=== PATIENT | male | born 1990 | race Hispanic/Latino ===

== ENCOUNTER 2016-12-01 18:28 | Emergency (ER) | payer BC, SELFPAY ==
[2016-12-01 18:28] VITALS: BMI 17.7
[2016-12-01 18:34] VITALS: PULSE 86; TEMP 97.9; O2SAT 98
[2016-12-01] MEDS ORDERED: TDAP Vaccine 0.5 mL Syr IM ONE (18:39)
--- NOTE | 2016-12-01 18:44 | ED PDOC ---
Arrival/HPI - General Chief Complaint: Finger,Hand,&Wrist Time Seen by Provider: 12/01/16 18:38 Historian: Patient - History of Present Illness Narrative History of Present Illness (Text): 12/01/16 18:39 26 y/o male, no pmh, nkda, last tetanus doesn't remember, nkda, c/o rt. hand 5th digit finger laceration x 2 hours by the metal. Pt. was walking, tripped over the curb, grab to the metal fence, sustained the laceration, bleeding resolved, no numbness or tingling, no dizziness, no headache, no fever or chills , no other medical or psychological complaints. Past Medical History - Provider Review Nursing Documentation Reviewed: Yes - Infectious Disease Hx of Infectious Diseases: None - Musculoskeletal/Rheumatological Other/Comment: MS - Psychiatric Hx Depression: No Hx Emotional Abuse: No Hx Physical Abuse: No Hx Substance Use: Yes (CANNABIS) - Suicidal Assessment Feels Threatened In Home Enviroment: No Family/Social History - Physician Review Nursing Documentation Reviewed: Yes Family/Social History: Unknown Family HX Smoking Status: Light Smoker < 10 Cigarettes Daily Hx Alcohol Use: Yes Hx Substance Use: Yes (CANNABIS) Allergies/Home Meds Allergies/Adverse Reactions: Allergies No Known Allergies Allergy (Verified 12/01/16 18:34) Review of Systems - Review of Systems Constitutional: absent: Fatigue, Fevers Respiratory: absent: SOB, Cough Cardiovascular: absent: Chest Pain Gastrointestinal: absent: Abdominal Pain, Nausea, Vomiting Skin: Laceration. absent: Rash, Pruritis, Skin Lesions, Abscess, Ulcer Neurological: absent: Headache, Dizziness, Focal Weakness, Speech Changes Physical Exam Vital Signs Reviewed: Yes Vital Signs Temp Pulse Resp BP Pulse Ox 12/01/16 19:46 16 112/72 12/01/16 18:31 97.9 F 86 18 123/80 98 Temperature: Afebrile Blood Pressure: Normal Pulse: Regular Respiratory Rate: Normal Appearance: Positive for: Well-Appearing, Non-Toxic, Comfortable Pain Distress: Mild Mental Status: Positive for: Alert and Oriented X 3 - Systems Exam Head: Present: Atraumatic, Normocephalic Pupils: Present: PERRL Extroacular Muscles: Present: EOMI Conjunctiva: Present: Normal Mouth: Present: Moist Mucous Membranes Neck: Present: Normal Range of Motion Respiratory/Chest: Present: Clear to Auscultation, Good Air Exchange. No: Respiratory Distress, Accessory Muscle Use Cardiovascular: Present: Regular Rate and Rhythm, Normal S1, S2. No: Murmurs Abdomen: Present: Normal Bowel Sounds. No: Tenderness, Distention, Peritoneal Signs Lower Extremity: Present: Other (Rt. hand 5th digit: ventral aspect middle phalanx noted to have skin tearing approx. 2cm superfical laceration noted with no visible foreign bodies, FROM without limitation, sensation intact, motor5/5, +radial pulse, capillary refill< 2 seconds, neurovascular intact. ) Neurological: Present: GCS=15, CN II-XII Intact, Speech Normal Skin: Present: Warm, Dry, Normal Color. No: Rashes Psychiatric: Present: Alert, Oriented x 3, Normal Insight, Normal Concentration Medical Decision Making ED Course and Treatment: 12/01/16 18:42 -tetanus, keflex, motrin -xray r/o fracture or foreign bodies. 12/01/16 19:01 -xray show no fracture or dislocation -wound irrigate with normal saline, clean with betadine, 1.5cc for digital block , sterile procedure 5-0 nylon made 7 sutures, hemostasis obtained, bacitracin applied, gauze dressing, sensation intact, motor 5/5, finger splint applied, less than 1cc of blood loss, no complication. -Discharge home with keflex, bacitracin oinment, motrin, finger splint, keep the dressing dry and clean for 24-48 hours, clean with soap and water twice daily, avoid strenuous exercise or activity, follow up with your own pmd and hand specialist within 2 days, sutures need to be removed by day 12, return to the ER for any new or worsening signs or symptoms. - RAD Interpretation Radiology Orders: 12/01/16 18:38 HAND LEFT 5TH DIGIT (FINGER) [RAD] Stat normal left hand radiograph [employer] Concentration: Radiologist - Medication Orders Current Medication Orders: Discontinued Medications Acetaminophen (Tylenol 650 Mg Supp) Confirm Administered Dose 650 mg .ROUTE .STK -MED ONE Stop: 12/01/16 23:24 Cephalexin Monohydrate (Keflex) 500 mg PO STAT STA PRN Reason: Protocol Stop: 12/01/16 18:40 Last Admin: 12/01/16 19:08 Dose: 500 MG Ibuprofen (Motrin Tab) 600 mg PO STAT STA Stop: 12/01/16 18:40 Last Admin: 12/01/16 19:08 Dose: 600 MG Lidocaine HCl (Lidocaine 1% (20ml)) 1.5 ml IJ STAT STA Stop: 12/01/16 19:01 Last Admin: 12/01/16 19:07 Dose: 1.5 ML Comments: Given to PA Tetanus/Reduced Diphtheria/Acell Pertussis (Boostrix Vaccine Inj) 0.5 ml IM .ONCE ONE Stop: 12/01/16 18:40 Last Admin: 12/01/16 19:08 Dose: 0.5 ML MAR Immunization Data Document 12/01/16 19:08 [facility] [place] (Rec: 12/01/16 19:08 [id number]) Immunization Data Vaccine Lot Number [id number] Vaccine Expiration Date 11/01/18 - PA / [employer] / Resident Statement / has reviewed & agrees with the documentation as recorded. Disposition/Present on Arrival - Present on Arrival Any Indicators Present on Arrival: No History of DVT/PE: No History of Uncontrolled Diabetes: No Urinary Catheter: No History of Decub. Ulcer: No History Surgical Site Infection Following: None - Disposition Have Diagnosis and Disposition been Completed?: Yes Diagnosis: Finger laceration Disposition: HOME/ ROUTINE Disposition Time: 18:55 Patient Plan: Discharge Condition: IMPROVED Discharge Instructions (ExitCare): Laceration (ED), Care For Your Stitches (ED) Additional Instructions: Discharge home with keflex, bacitracin oinment, motrin, finger splint, keep the dressing dry and clean for 24-48 hours, clean with soap and water twice daily, avoid strenuous exercise or activity, follow up with your own pmd and hand specialist within 2 days, sutures need to be removed by day 12, return to the ER for any new or worsening signs or symptoms. Prescriptions: Bacitracin Ointment [Bacitracin] 1 appful TOP BID #15 g Cephalexin [cephalexin] 500 mg PO QID #28 cap Ibuprofen [Motrin] 600 mg PO QID #24 tab Referrals: Maria Esther Perez MD [Non-Staff] - Follow up with primary [facility] [place] [Outside] - Follow up with primary Forms: WORK NOTE
[2016-12-01] MEDS ORDERED: Lidocaine 1% Inj (20ml) IJ STA (19:00)
[2016-12-01 19:47] VITALS: BP 112/72; RESP 16
--- NOTE | 2016-12-02 07:56 | RAD ---
PROCEDURE: Left Hand Radiographs. HISTORY: lt. hand 5th ventral laceration by metal COMPARISON: None. FINDINGS: BONES: Normal. No fracture. JOINTS: Normal. No osteoarthritic changes. SOFT TISSUES: Normal. OTHER FINDINGS: None. IMPRESSION: Normal left hand radiographs.
== END 2016-12-01 19:47 | disposition home or self-care (01) ==
LOC: ED 18:28
DX: S61.217A Laceration without foreign body of left little finger without damage to nail, initial encounter (principal); W01.118A Fall on same level from slipping, tripping and stumbling with subsequent striking against other sharp object, initial encounter; Y93.01 Activity, walking, marching and hiking; Y92.480 Sidewalk as the place of occurrence of the external cause; Z23 Encounter for immunization

== ENCOUNTER 2016-12-19 10:05 | Emergency (ER) | payer BC ==
[2016-12-19 10:05] VITALS: BMI 17.7
[2016-12-19 10:22] VITALS: BP 100/66; PULSE 87; RESP 16; TEMP 98.3; O2SAT 97
--- NOTE | 2016-12-19 10:42 | ED PDOC ---
Arrival/HPI - General Chief Complaint: Suture/Staple Removal Time Seen by Provider: 12/19/16 10:11 Historian: Patient - History of Present Illness Narrative History of Present Illness (Text): 12/19/16 10:38 26yo male who present to ED for suture removal from his left 5th finger. Sutures was placed here on 12/01/16. states he never followed up with anyone. Denies discharge, redness, any other complaint. Past Medical History - Provider Review Nursing Documentation Reviewed: Yes - Infectious Disease Hx of Infectious Diseases: None - Cardiac Hx Cardiac Disorders: No - Pulmonary Hx Respiratory Disorders: No - Neurological Hx Neurological Disorder: No - HEENT Hx HEENT Disorder: No - Renal Hx Renal Disorder: No - Endocrine/Metabolic Hx Endocrine Disorders: No - Hematological/Oncological Hx Blood Disorders: No - Integumentary Hx Dermatological Disorder: No - Musculoskeletal/Rheumatological Other/Comment: MD - Gastrointestinal Hx Gastrointestinal Disorders: No - Genitourinary/Gynecological Hx Genitourinary Disorders: No - Psychiatric Hx Psychophysiologic Disorder: No Hx Depression: No Hx Emotional Abuse: No Hx Physical Abuse: No Hx Substance Use: Yes (CANNABIS) - Surgical History Other/Comment: MUSCLE BX - Suicidal Assessment Feels Threatened In Home Enviroment: No Family/Social History - Physician Review Nursing Documentation Reviewed: Yes Family/Social History: Unknown Family HX Smoking Status: Light Smoker < 10 Cigarettes Daily Hx Alcohol Use: Yes Hx Substance Use: Yes (CANNABIS) Allergies/Home Meds Allergies/Adverse Reactions: Allergies No Known Allergies Allergy (Verified 12/19/16 10:16) Review of Systems - Physician Review All systems were reviewed & negative as marked: Yes - Review of Systems Constitutional: Normal Eyes: Normal ENT: Normal Respiratory: Normal Cardiovascular: Normal Gastrointestinal: Normal Genitourinary Male: Normal Musculoskeletal: Normal Skin: Other (Suture removal) Neurological: Normal Endocrine: Normal Hemo/Lymphatic: Normal Psychiatric: Normal Physical Exam Vital Signs Reviewed: Yes Vital Signs Temp Pulse Resp BP Pulse Ox 12/19/16 10:20 98.3 F 87 16 100/66 97 Temperature: Afebrile Blood Pressure: Normal Pulse: Regular Respiratory Rate: Normal Appearance: Positive for: Well-Appearing, Non-Toxic, Comfortable Pain Distress: None Mental Status: Positive for: Alert and Oriented X 3 - Systems Exam Head: Present: Atraumatic, Normocephalic Pupils: Present: PERRL Extroacular Muscles: Present: EOMI Conjunctiva: Present: Normal Mouth: Present: Moist Mucous Membranes Neck: Present: Normal Range of Motion Respiratory/Chest: Present: Clear to Auscultation, Good Air Exchange. No: Respiratory Distress, Accessory Muscle Use Cardiovascular: Present: Regular Rate and Rhythm, Normal S1, S2. No: Murmurs Abdomen: Present: Normal Bowel Sounds. No: Tenderness, Distention, Peritoneal Signs Back: Present: Normal Inspection Upper Extremity: Present: Normal Inspection. No: Cyanosis, Edema Lower Extremity: Present: Normal Inspection. No: Edema Neurological: Present: GCS=15, CN II-XII Intact, Speech Normal Skin: Present: Warm, Dry, Normal Color, Other (6sutures noted in place on left ortiz 5th finger. No erythema. No discharge. No sign of infection). No: Rashes Psychiatric: Present: Alert, Oriented x 3, Normal Insight, Normal Concentration Medical Decision Making ED Course and Treatment: 12/19/16 10:41 Suture area cleaned with betadine. 7sutures removed. Skin edge appear approximated. Bacitracine applied. Referred to his PMD. Disposition/Present on Arrival - Present on Arrival Any Indicators Present on Arrival: No History of DVT/PE: No History of Uncontrolled Diabetes: No Urinary Catheter: No History of Decub. Ulcer: No History Surgical Site Infection Following: None - Disposition Have Diagnosis and Disposition been Completed?: Yes Diagnosis: Visit for suture removal Disposition: HOME/ ROUTINE Disposition Time: 10:40 Patient Plan: Discharge Condition: STABLE Discharge Instructions (ExitCare): Stitches Removal (ED) Additional Instructions: Follow up with your doctor Keep wound clean and dry Follow up with your doctor Return to ED for any new or worsening symptoms Referrals: Mathew Charlton, [Primary Care Provider] - Follow up with primary
== END 2016-12-19 10:49 | disposition home or self-care (01) ==
LOC: ED 10:05
DX: Z48.02 Encounter for removal of sutures (principal)

== ENCOUNTER 2017-08-30 00:50 | Emergency (ER) | payer BC ==
[2017-08-30 00:51] VITALS: BMI 17.7
[2017-08-30 01:00] VITALS: TEMP 97.8
[2017-08-30] MEDS ORDERED: Oxycodone/Acetaminophen 5/325 mg Tab PO STA (01:00)
--- NOTE | 2017-08-30 01:05 | ED PDOC ---
Arrival/HPI - General Chief Complaint: Dental Pain Time Seen by Provider: 08/30/17 01:00 Historian: Patient - History of Present Illness Narrative History of Present Illness (Text): 08/30/17 01:01 27yo male with history of muscular dystrophy who present with complaint of left sided lower toothache. States he already have appointment with a Dental surgeon tomorrow. States he has been taking Ibuprofen 600mg without relieve. He denies trauma, any other complaint. Past Medical History - Provider Review Nursing Documentation Reviewed: Yes - Infectious Disease Hx of Infectious Diseases: None - Cardiac Hx Cardiac Disorders: No - Pulmonary Hx Respiratory Disorders: No - Neurological Hx Neurological Disorder: No - HEENT Hx HEENT Disorder: No - Renal Hx Renal Disorder: No - Endocrine/Metabolic Hx Endocrine Disorders: No - Hematological/Oncological Hx Blood Disorders: No - Integumentary Hx Dermatological Disorder: No - Musculoskeletal/Rheumatological Other/Comment: MD - Gastrointestinal Hx Gastrointestinal Disorders: No - Genitourinary/Gynecological Hx Genitourinary Disorders: No - Psychiatric Hx Psychophysiologic Disorder: No Hx Depression: No Hx Emotional Abuse: No Hx Physical Abuse: No Hx Substance Use: Yes (CANNABIS) - Surgical History Other/Comment: MUSCLE BX - Suicidal Assessment Feels Threatened In Home Enviroment: No Family/Social History - Physician Review Nursing Documentation Reviewed: Yes Family/Social History: Unknown Family HX Smoking Status: Heavy Smoker > 10 Cigarettes Daily Hx Alcohol Use: Yes Frequency of alcohol use: Socially Hx Substance Use: Yes (CANNABIS) Allergies/Home Meds Allergies/Adverse Reactions: Allergies No Known Allergies Allergy (Verified 08/30/17 01:00) Review of Systems - Physician Review All systems were reviewed & negative as marked: Yes - Review of Systems Constitutional: Normal Eyes: Normal ENT: Other (Dental pain) Respiratory: Normal Cardiovascular: Normal Gastrointestinal: Normal Genitourinary Male: Normal Musculoskeletal: Normal Skin: Normal Neurological: Normal Endocrine: Normal Hemo/Lymphatic: Normal Psychiatric: Normal Physical Exam Vital Signs Reviewed: Yes Vital Signs Temp Pulse Resp BP Pulse Ox 08/30/17 00:54 97.8 F 74 18 124/75 99 Temperature: Afebrile Blood Pressure: Normal Pulse: Regular Respiratory Rate: Normal Appearance: Positive for: Well-Appearing, Non-Toxic, Comfortable Pain Distress: None Mental Status: Positive for: Alert and Oriented X 3 - Systems Exam Head: Present: Atraumatic, Normocephalic Pupils: Present: PERRL Extroacular Muscles: Present: EOMI Conjunctiva: Present: Normal Mouth: Present: Moist Mucous Membranes. No: Normal Teeth (Partial Left sided lower 2nd molar noted. No gingival swelling) Neck: Present: Normal Range of Motion Respiratory/Chest: Present: Clear to Auscultation, Good Air Exchange. No: Respiratory Distress, Accessory Muscle Use Cardiovascular: Present: Regular Rate and Rhythm, Normal S1, S2. No: Murmurs Abdomen: Present: Normal Bowel Sounds. No: Tenderness, Distention, Peritoneal Signs Back: Present: Normal Inspection Upper Extremity: Present: Normal Inspection. No: Cyanosis, Edema Lower Extremity: Present: Normal Inspection. No: Edema Neurological: Present: GCS=15, CN II-XII Intact, Speech Normal Skin: Present: Warm, Dry, Normal Color. No: Rashes Psychiatric: Present: Alert, Oriented x 3, Normal Insight, Normal Concentration Disposition/Present on Arrival - Present on Arrival Any Indicators Present on Arrival: No History of DVT/PE: No History of Uncontrolled Diabetes: No Urinary Catheter: No History of Decub. Ulcer: No History Surgical Site Infection Following: None - Disposition Have Diagnosis and Disposition been Completed?: Yes Diagnosis: Dental caries Disposition: HOME/ ROUTINE Disposition Time: 01:10 Patient Plan: Discharge Condition: STABLE Discharge Instructions (ExitCare): Dental Caries (ED) Additional Instructions: Follow up with your Dental surgeon Return to ED for any new or worsening symptoms Prescriptions: traMADol [Ultram] 50 mg PO Q6 #6 tab Referrals: [facility] [place] [Outside] - Follow up with primary
[2017-08-30 01:22] VITALS: BP 130/70; PULSE 70; RESP 16; O2SAT 100
== END 2017-08-30 01:27 | disposition home or self-care (01) ==
LOC: ED 00:50
DX: K02.9 Dental caries, unspecified (principal)

== ENCOUNTER 2017-11-17 13:22 | Emergency (ER) | payer BC ==
--- NOTE | 2017-11-17 14:16 | ED PDOC ---
Arrival/HPI - General Time Seen by Provider: 11/17/17 14:00 Historian: Patient - History of Present Illness Narrative History of Present Illness (Text): 11/17/17 14:12 27 year old male, whose past medical history includes muscular dystrophy, presents to the emergency department complaining of right knee pain s/p fall last night. Patient was carrying bags and tripped, twisting is right knee. Patient notes he propped up the leg and put on a knee brace. Patient also notes pain to the right knee when bearing weight. Patient denies any fever, chills, back pain, neck pain, headache, dizziness, or any other complaints. Time/Duration: Other (last night) Symptom Onset: Sudden Symptom Course: Unchanged Activities at Onset: Light Context: Walking Past Medical History - Provider Review Nursing Documentation Reviewed: Yes - Infectious Disease Hx of Infectious Diseases: None - Cardiac Hx Cardiac Disorders: No - Pulmonary Hx Respiratory Disorders: No - Neurological Hx Neurological Disorder: No - HEENT Hx HEENT Disorder: No - Renal Hx Renal Disorder: No - Endocrine/Metabolic Hx Endocrine Disorders: No - Hematological/Oncological Hx Blood Disorders: No - Integumentary Hx Dermatological Disorder: No - Musculoskeletal/Rheumatological Other/Comment: MD - Gastrointestinal Hx Gastrointestinal Disorders: No - Genitourinary/Gynecological Hx Genitourinary Disorders: No - Psychiatric Hx Psychophysiologic Disorder: No Hx Depression: No Hx Emotional Abuse: No Hx Physical Abuse: No Hx Substance Use: Yes (CANNABIS) - Surgical History Other/Comment: MUSCLE BX - Suicidal Assessment Feels Threatened In Home Enviroment: No Family/Social History - Physician Review Nursing Documentation Reviewed: Yes Family/Social History: Unknown Family HX Smoking Status: Heavy Smoker > 10 Cigarettes Daily Hx Alcohol Use: Yes Hx Substance Use: Yes (CANNABIS) Allergies/Home Meds Allergies/Adverse Reactions: Allergies No Known Allergies Allergy (Verified 11/17/17 14:15) Home Medications: Home Meds Medication Instructions Recorded Confirmed No Known Home Med 11/17/17 11/17/17 Review of Systems - Review of Systems Constitutional: absent: Fevers Respiratory: absent: SOB Cardiovascular: absent: Chest Pain Gastrointestinal: absent: Abdominal Pain Musculoskeletal: Other (right knee pain, denies hip or ankle pain). absent: Back Pain, Neck Pain Skin: absent: Rash, Skin Lesions, Laceration Neurological: Gait Changes. absent: Headache, Dizziness, Focal Weakness Hemo/Lymphatic: absent: Easy Bleeding Physical Exam - Physical Exam Narrative Physical Exam (Text): 11/17/17 14:20 Head: Atraumatic. Normocephalic. Eyes: Conjunctiva not injected. ENT: Mucous membranes are moist and intact. Neck: Supple. Nontender. Cardiovascular: Regular rate. Regular rhythm. Distal pulses intact in lower extremity Pulmonary/Chest: No evidence of respiratory distress. Back: No CVA tenderness. Extremities: There is mild swelling noted to right knee with pain over lateral patella and lateral knee. Mild ligamentous laxity noted with NEGATIVE anterior drawer's sign. No erythema or warmth. Full flexion and extension at knee. No hip or ankle pain with direct palpation or range of motion. No left sided leg pain. No achilles or calf pain. Skin: Skin is warm and dry. No erythema. No lacerations or abrasions. Neurological: Alert, awake, and oriented. Motor and sensory exam intact in all extremities, at baseline. Psychiatric: Good eye contact. Normal interaction, affect, and behavior. 11/17/17 14:31 Vital Signs Reviewed: Yes Vital Signs Temp Pulse Resp BP Pulse Ox 11/17/17 15:40 77 18 115/71 99 11/17/17 14:16 98.1 F 84 17 110/54 L 99 Temperature: Afebrile Appearance: Positive for: Uncomfortable Pain Distress: Moderate Medical Decision Making ED Course and Treatment: 11/17/17 14:17 Impression: 27 year old male who presents to the emergency department complaining of right knee pain s/p fall. Differential Diagnosis included but are not limited to: Knee Sprain vs. Knee Ligament Tear vs. Knee Fx Plan: -- Xray Rt knee -- Mobilizer -- Orthopedic referral -- Reassess and disposition Progress Notes: Patient with prior history of muscular dystrophy. On exam he has pain and mild swelling to right knee. No hip pain or ankle pain. Patient is NV intact. He has been bearing weight with pain. He placed brace on his knee prior to arrival. Suspect right knee ligamentous injury. He has strong distal pulses and is neurologically intact. Xrays negative for acute fracture. Limitations of plan films in diagnosing ligamentous disease reviewed with patient. He was placed in knee immobilizer, I advised crutches and non weight bearing until cleared by orthopedic physician. He has been given work note and orthopedic referrals. Treatment plan reviewed with patient. He is NV intact on re-evaluation. No fever. No hip pain. No ankle pain. - RAD Interpretation Radiology Orders: 11/17/17 14:16 KNEE W PATELLA RIGHT 3 VIEW [RAD] Stat - Scribe Statement The provider has reviewed the documentation as recorded by the Scribe Katerin Hunteraditi All medical record entries made by the Scribe were at my direction and personally dictated by me. I have reviewed the chart and agree that the record accurately reflects my personal performance of the history, physical exam, medical decision making, and the department course for this patient. I have also personally directed, reviewed, and agree with the discharge instructions and disposition. Disposition/Present on Arrival - Present on Arrival Any Indicators Present on Arrival: No History of DVT/PE: No History of Uncontrolled Diabetes: No Urinary Catheter: No History Surgical Site Infection Following: None - Disposition Have Diagnosis and Disposition been Completed?: Yes Diagnosis: Knee sprain Disposition: HOME/ ROUTINE Disposition Time: 15:30 Patient Plan: Discharge Condition: GOOD Discharge Instructions (ExitCare): How to Use Crutches, Knee Immobilizer (DC), Knee Sprain (DC) Additional Instructions: You have a right knee injury, possible ligament injury. Wear immobilizer and use crutches. Please follow-up with orthopedic physician for reassessment of injury. No strenuous activity until cleared by orthopedic physician. If you had an X-Ray or CT scan: A Radiologist will review the ED reading if any change in treatment is needed we will contact you. Referrals: [facility] [Outside] - Follow up with primary [facility] [place] [Outside] - Follow up with primary Brandon Nicolas MD [Staff Provider] - Follow up with primary Forms: [employer] (Belarusian), WORK NOTE
[2017-11-17 14:17] VITALS: TEMP 98.1; O2SAT 99; BMI 21.6
--- NOTE | 2017-11-17 15:29 | RAD ---
PROCEDURE: Right Knee Radiographs. HISTORY: right knee injury COMPARISON: None. FINDINGS: BONES: Normal. No fracture. JOINTS: Normal. No osteoarthritis. JOINT EFFUSION: None. OTHER FINDINGS: None. IMPRESSION: Normal radiographs of the right knee.
[2017-11-17 16:32] VITALS: BP 115/71; PULSE 77; RESP 18
== END 2017-11-17 15:40 | disposition home or self-care (01) ==
LOC: ED 13:22
DX: S83.91XA Sprain of unspecified site of right knee, initial encounter (principal); W01.0XXA Fall on same level from slipping, tripping and stumbling without subsequent striking against object, initial encounter; Y92.9 Unspecified place or not applicable

== ENCOUNTER 2018-04-24 09:11 | Emergency (ER) | payer SELFPAY ==
[2018-04-24 09:11] VITALS: BMI 21.6
[2018-04-24 09:37] VITALS: RESP 18; TEMP 98.1
--- NOTE | 2018-04-24 10:11 | ED PDOC ---
Arrival/HPI - General Historian: Patient - History of Present Illness Time/Duration: 24 hours Symptom Onset: Sudden Symptom Course: Unchanged Quality: Stabbing Severity Level: 9 - General Time Seen by Provider: 04/24/18 09:35 - History of Present Illness Narrative History of Present Illness (Text): Patient is a 27 year old male with past medical history of Limb-girdle muscular dystrophy presenting to the ED with right hip pain after a fall. Patient states that he fell 10 steps while climbing up the stairs last night. He states that he fell on his right hip and hit his head but denies any loss of consciousness or headaches. Patient describes the pain in the right hip as sharp, 9/10, and non-radiating. Walking makes the pain worse and staying still makes the pain better. Patient further denies fevers, chills, nausea, vomiting, shortness of breath, chest pain, abdominal pain, or urinary symptoms. (Kendall Phoenix) Past Medical History - Provider Review Nursing Documentation Reviewed: Yes - Travel History Have you recently traveled outside [place] w/in the past 3 mons?: Yes - Infectious Disease Hx of Infectious Diseases: None - Cardiac Hx Cardiac Disorders: No - Pulmonary Hx Respiratory Disorders: No - Neurological Hx Neurological Disorder: No Other/Comment: muscular atrophy - HEENT Hx HEENT Disorder: No - Renal Hx Renal Disorder: No - Endocrine/Metabolic Hx Endocrine Disorders: No - Hematological/Oncological Hx Blood Disorders: No - Integumentary Hx Dermatological Disorder: No - Musculoskeletal/Rheumatological Other/Comment: MD - Gastrointestinal Hx Gastrointestinal Disorders: No - Genitourinary/Gynecological Hx Genitourinary Disorders: No - Psychiatric Hx Psychophysiologic Disorder: No Hx Depression: No Hx Emotional Abuse: No Hx Physical Abuse: No Hx Substance Use: Yes (CANNABIS) - Surgical History Other/Comment: MUSCLE BX - Anesthesia Hx Anesthesia: Yes Hx Anesthesia Reactions: No - Suicidal Assessment Feels Threatened In Home Enviroment: No - Patient History Narrative Patient History: Limb-girdle muscular dystrophy (Kendall Phoenix) Family/Social History - Physician Review Nursing Documentation Reviewed: Yes Family/Social History: Hypertension Smoking Status: Heavy Smoker > 10 Cigarettes Daily Hx Alcohol Use: Yes Frequency of alcohol use: Socially Hx Substance Use: Yes (CANNABIS) Allergies/Home Meds Allergies/Adverse Reactions: Allergies No Known Allergies Allergy (Verified 11/17/17 14:15) Home Medications: Home Meds Medication Instructions Recorded Confirmed No Known Home Med 11/17/17 11/17/17 Review of Systems - Physician Review All systems were reviewed & negative as marked: Yes - Review of Systems Constitutional: Normal. absent: Fevers, Night Sweats Eyes: Normal. absent: Vision Changes ENT: Normal Respiratory: Normal. absent: SOB, Cough, Sputum, Wheezing Cardiovascular: Normal. absent: Chest Pain Gastrointestinal: Normal. absent: Abdominal Pain, Constipation, Diarrhea, Nausea, Vomiting Genitourinary Male: Normal. absent: Dysuria, Frequency, Hematuria Musculoskeletal: Other (Right hip pain). absent: Back Pain, Neck Pain Skin: Normal. absent: Rash, Pruritis, Skin Lesions, Laceration Neurological: Normal. absent: Headache, Dizziness, Focal Weakness Psychiatric: Normal. absent: Anxiety, Depression Physical Exam Vital Signs Reviewed: Yes Temperature: Afebrile Blood Pressure: Hypertensive Pulse: Regular Respiratory Rate: Normal Appearance: Positive for: Well-Appearing, Non-Toxic, Comfortable Pain Distress: Moderate Mental Status: Positive for: Alert and Oriented X 3 - Systems Exam Head: Present: Atraumatic, Normocephalic. No: Tenderness, Contusion, Ecchymosis , Abrasion, Laceration Pupils: Present: PERRL Extroacular Muscles: Present: EOMI Conjunctiva: Present: Normal Ears: Present: Normal Mouth: Present: Moist Mucous Membranes Neck: Present: Normal Range of Motion. No: MIDLINE TENDERNESS, Paraspinal Tenderness Respiratory/Chest: Present: Clear to Auscultation, Good Air Exchange. No: Respiratory Distress, Accessory Muscle Use, Wheezes, Rales, Rhonchi Cardiovascular: Present: Regular Rate and Rhythm, Normal S1, S2. No: Murmurs, Rub, Gallop Abdomen: Present: Normal Bowel Sounds. No: Tenderness, Distention, Peritoneal Signs Upper Extremity: Present: Normal Inspection. No: Cyanosis, Edema Lower Extremity: Present: Tenderness (Right hip tender to palpation, pain radiates to upper right thigh), Neurovascularly Intact. No: Edema, CALF TENDERNESS, Swelling Neurological: Present: GCS=15, CN II-XII Intact, Speech Normal, Motor Func Grossly Intact (Motor and sensory exam intact in all extremities, at baseline) Skin: Present: Warm, Dry, Normal Color. No: Rashes Psychiatric: Present: Alert, Oriented x 3, Normal Insight, Normal Concentration Vital Signs Temp Pulse Resp BP Pulse Ox 04/24/18 09:32 98.1 F 85 18 148/66 98 Medical Decision Making ED Course and Treatment: Impression: Patient is a 27 year old male presenting to the ED with right hip pain s/p fall. Differential Diagnosis included but are not limited to: - Bone fracture - Muscle sprain Plan: -- Hip and pelvis xray -- Tylenol Progress Notes: 04/24/18 11:35 - Hip and pelvis Xray: Unremarkable - Patient instructed to get over the counter tylenol or motrin if needed. Instructed patient to return to the ED for worsening or newly concerning symptoms. Patient is stable for discharge. (Kendall Phoenix) 04/24/18 11:45 Seen and examined with the resident. Our history and physical exam reveals a young man with muscular dystrophy who fell down multiple stairs last night injuring his right hip. He appears to be comfortable and in no distress. ( Dequan Urban) - RAD Interpretation Radiology Orders: 04/24/18 10:11 Hip Bi with Pelvis Fall Protocol [HIP MIN 2V W/ PELVIS ABNER] [RAD] Stat - Medication Orders Current Medication Orders: Discontinued Medications Acetaminophen (Tylenol 325mg Tab) 650 mg PO STAT STA Stop: 04/24/18 10:15 Last Admin: 04/24/18 10:32 Dose: 650 mg MAR Pain/Vitals Document 04/24/18 10:32 EQ (Rec: 04/24/18 10:32 EQ [id number]) Pain Reassessment Is This A Pain ReAssessment? No Sleep Is patient sleeping during reassessment? No Presence of Pain Presence of Pain Yes Disposition/Present on Arrival - Present on Arrival Any Indicators Present on Arrival: No History of DVT/PE: No History of Uncontrolled Diabetes: No Urinary Catheter: No History of Decub. Ulcer: No History Surgical Site Infection Following: None - Disposition Have Diagnosis and Disposition been Completed?: Yes Disposition Time: 11:37 Patient Plan: Discharge - Disposition Diagnosis: Hip pain, right, Fall Disposition: HOME/ ROUTINE Condition: IMPROVED Discharge Instructions (ExitCare): Preventing Falls Additional Instructions: JYOTSNA NG, thank you for letting us take care of you today. Your provider was Sohail Urban MD and you were treated for right hip pain. The emergency medical care you received today was directed at your acute symptoms. If you were prescribed any medication, please fill it and take as directed. It may take several days for your symptoms to resolve. Return to the Emergency Department if your symptoms worsen, do not improve, or if you have any other problems. Please contact your doctor or call one of the physicians/clinics you have been referred to that are listed on the Patient Visit Information form that is included in your discharge packet. Bring any paperwork you were given at discharge with you along with any medications you are taking to your follow up visit. Our treatment cannot replace ongoing medical care by a primary care provider outside of the emergency department. Thank you for allowing the [facility] team to be part of your care today. 1. Please take over the counter tylenol or motrin for the pain as needed 2. Follow up with your primary care doctor 3. Return to the emergency room for worsening or newly concerning symptoms. Referrals: Nicole Wakefield MD [Medical Doctor] - Follow up with primary Forms: WORK NOTE, [employer] (Macedonian)
--- NOTE | 2018-04-24 11:31 | RAD ---
PROCEDURE: Radiographs of the pelvis and bilateral hips HISTORY: Right hip pain s/p fall COMPARISON: None. FINDINGS: BONES: Pelvis: Unremarkable. Right hip:Unremarkable. Left hip:Unremarkable. JOINTS: Right hip: Unremarkable. Left hip: Unremarkable. Sacroiliac Joints: Unremarkable. Pubic symphysis: Unremarkable. SOFT TISSUES: Normal. OTHER FINDINGS: None. IMPRESSION: Unremarkable radiographs of the hips and pelvis.
[2018-04-24 11:46] VITALS: BP 111/57; PULSE 58; O2SAT 99
== END 2018-04-24 11:56 | disposition home or self-care (01) ==
LOC: ED 09:11
DX: M25.551 Pain in right hip (principal); W10.9XXA Fall (on) (from) unspecified stairs and steps, initial encounter; Y92.009 Unspecified place in unspecified non-institutional (private) residence as the place of occurrence of the external cause